=== PATIENT | female | born 1955 | race Caucasian/White ===

== ENCOUNTER 2018-08-17 13:46 | Outpatient (CLI) | payer BC ==
--- NOTE | 2018-08-17 15:47 | RAD ---
LEFT HAND THREE VIEWS: 08/17/18 INDICATION: Left hand pain. COMPARISON: None. FINDINGS: There is scattered osteoarthrosis of the IP joint and first MP joint. No acute fracture or subluxatio n is evident. IMPRESSION: Scattered osteoarthrosis left hand. POS: [facility]
== END 2018-08-17 13:47 | disposition home or self-care (01) ==
LOC: RAD-FRANK 13:46
PROVIDERS: ATTEND Nurse Practitioner Family
DX: M79.642 Pain in left hand (principal); M19.042 Primary osteoarthritis, left hand